=== PATIENT | male | born 1980 | race Caucasian/White ===

== ENCOUNTER 2020-03-16 12:54 | Emergency (ER) | payer SELFPAY ==
[2020-03-16] MEDS ORDERED: METOCLOPRAMIDE HCL INJ/PF 10 MG/2 ML SDV IV ONE (13:34)
[2020-03-16] MEDS ORDERED: NORMAL SALINE 1000 ML 1,000 ML IV ONE (13:34)
[2020-03-16] MEDS ORDERED: ACETAMINOPHEN 325 MG TABLET PO ONE (13:36)
--- NOTE | 2020-03-16 13:36 | ER Document Report ---
ED General - General Chief Complaint: Nausea/Vomiting/Diarrhea Stated Complaint: VOMITING/NAUSEA/SOB/MUSCLE PAIN Time Seen by Provider: 03/16/20 13:13 Notes: Patient is a 40-year-old male who presents to the emergency department with multiple complaints. Patient states that he has nausea, vomiting, diarrhea, generalized body aches, back pain, and generally not feeling well. Patient states that he has been taking "a dissolvable pill to help with nausea" from his mother. Patient states despite taking the nausea medication, he continues to vomit. States that he has a remote history of drug abuse. States that he does not know if he has had any contact with anybody with COVID-19. Patient states that he sometimes wears a mask out, and sometimes does not. TRAVEL OUTSIDE OF THE [place] IN LAST 30 DAYS: No - Related Data Allergies/Adverse Reactions: Bees Allergy (Uncoded 07/21/15 07:54) Past Medical History - General Information source: Patient - Social History Smoking Status: Current Every Day Smoker Family History: Reviewed & Not Pertinent - Past Medical History Cardiac Medical History: Reports: Hx Hypertension - pulmonary Renal/ Medical History: Reports: Hx Kidney Stones - right GI Medical History: Reports: Hx Ulcerative Colitis - Immunizations Hx Diphtheria, Pertussis, Tetanus Vaccination: Yes Review of Systems - Review of Systems Notes: REVIEW OF SYSTEMS: CONSTITUTIONAL : Denies recent illness. Denies recent unintentional weight loss. See HPI. EENT: Denies eye, ear, throat, or mouth pain, discharge, or symptoms. Denies nasal or sinus congestion. CARDIOVASCULAR: Denies chest pain. RESPIRATORY: Denies shortness of breath, cough, congestion, difficulty breathing, or wheezing. GASTROINTESTINAL: See HPI. GENITOURINARY: Denies difficulty urinating, burning, blood in urine, urgency or frequency. MUSCULOSKELETAL: Denies neck and back pain. Denies joint pain or swelling. SKIN: Denies rash, itchiness, or lesions HEMATOLOGIC : Denies easy bruising or bleeding. LYMPHATIC: Denies swollen, painful, enlarged glands. NEUROLOGICAL: Denies no numbness or tingling denies weakness. Denies headache. Denies altered mental status. Denies alteration in speech. PSYCHIATRIC: Denies stress, anxiety, alteration in sleep patterns, or depression. All other systems reviewed and negative. Physical Exam - Vital signs Vitals: Temp Pulse Resp BP Pulse Ox 97.8 F 106 H 20 141/102 H 100 03/16/20 13:20 03/16/20 13:20 03/16/20 13:20 03/16/20 13:20 03/16/20 13:20 - Notes Notes: PHYSICAL EXAMINATION: GENERAL: Appears well, healthy, well-nourished, no acute distress. HEAD: Normocephalic, atraumatic. EYES: PERRL, conjunctiva normal, all extraocular movements intact, sclera nonicteric ENT: Moist mucous membranes. NECK: Supple, no noticeable swelling, redness, rash. Normal range of motion. LUNGS: Equal breath sounds bilaterally and clear to auscultation. No wheezes rales or rhonchi. CARDIOVASCULAR: S1-S2, regular rate, regular rhythm. Radial pulses 2+, normal. ABDOMEN: Normoactive bowel sounds. Soft, nontender, no guarding, no rebound tenderness, and no masses palpated. EXTREMITIES: Normal strength and range of motion, no pitting or edema. No cyanosis. NEUROLOGICAL: Moves all extremities upon command. Strength 5/5 in all extremities. PSYCH: Normal mood, normal affect. SKIN: Warm, dry. No rash, lesions, ulcerations noted. Normal skin turgor. Course - Re-evaluation Re-evalutation: 03/16/20 15:21 Reevaluated patient. Patient has had about 500 and mils of his normal saline bolus. Patient states that he still feels significantly better after receiving Reglan and Tylenol. Will reevaluate the patient. His heart rate is still up in the low 100s. 03/16/20 17:39 Patient has been asked multiple times to provide a urine sample. He still has not.Hematology shows a hemoglobin of 17.7 and hematocrit of 52.6. This is consistent with dehydration. Chemistries are unremarkable, other than a calcium of 10.3, also consistent with dehydration. Troponin is unremarkable. Chest x-r ay is also unremarkable. Patient does not have any point tenderness noted to his spine. I have a low suspicion for an epidural abscess. 03/16/20 18:23 Urinalysis shows trace ketones and the patient's urine. The patient was evaluated during the global COVID-19 pandemic and that diagnosis was suspe cted/considered upon their initial presentation. Their evaluation, treatment and testing was consistent with current guidelines for patients who present with complaints or symptoms that may be related to COVID-19. Follow-up precautions were given. Verbal discharge instructions were given to the patient. They verbalized understanding. They are stable for discharge. - Vital Signs Vital signs: Temp Pulse Resp BP Pulse Ox 97.8 F 98 20 141/102 H 100 03/16/20 13:20 03/16/20 18:43 03/16/20 18:43 03/16/20 13:20 03/16/20 18:43 - Laboratory Result Diagrams: 03/16/20 14:30 03/16/20 14:30 Laboratory results interpreted by me: 03/16/20 03/16/20 03/16/20 14:30 14:30 17:14 RBC 5.93 H Hgb 17.7 H Hct 52.6 H RDW 14.3 H Lymph % (Auto) 10.2 L Calcium 10.3 H Urine Ketones TRACE H Discharge - Discharge Clinical Impression: Suspected COVID-19 virus infection Nausea & vomiting Qualifiers: Vomiting type: unspecified Vomiting Intractability: unspecified Qualified Code(s): R11.2 - Nausea with vomiting, unspecified Condition: Stable Disposition: HOME, SELF-CARE Instructions: COVID-19 Guidance for Persons Under Investigation, Intravenous (IV) Fluids ([facility]), Vomiting ([facility]) Additional Instructions: You were seen today in the emergency department for generalized body aches, nausea, and vomiting. You are being tested for COVID-19. Please make sure he stay well-hydrated. Your labs show that you are dehydrated. The health department will call you with your results for the COVID test. Stay in quarantine until they tell you what your results are. You can take 1000 mg of Tylenol every 6 hours as needed for pain. Take the nausea medication you have at home to help with her symptoms. If your COVID test is positive, please stay in quarantine for 2 weeks.
[2020-03-16 14:41] VITALS: BP 141/102
--- NOTE | 2020-03-16 14:56 | RADIOLOGY REPORT (SQ) ---
EXAM DESCRIPTION: CHEST SINGLE VIEW IMAGES COMPLETED DATE/TIME: 03/16/2020 2:45 pm REASON FOR STUDY: body aches COMPARISON: None. NUMBER OF VIEWS: One view. TECHNIQUE: Single frontal radiographic view of the chest acquired. LIMITATIONS: None. FINDINGS: LUNGS AND PLEURA: No opacities, masses or pneumothorax. No pleural effusion. MEDIASTINUM AND HILAR STRUCTURES: No masses. Contour normal. HEART AND VASCULAR STRUCTURES: Heart normal in size. Normal vasculature. BONES: No acute findings. HARDWARE: None in the chest. OTHER: No other significant finding. IMPRESSION: NO SIGNIFICANT RADIOGRAPHIC FINDING IN THE CHEST. TECHNICAL DOCUMENTATION: JOB ID: [id number] [employer]- All Rights Reserved Reading location - IP/workstation name: [email or web address]
[2020-03-16 14:59] LABS: ABSOLUTE EOSINOPHILS # (AUTO) 0.1 10^3/uL (0.0-0.6); ABSOLUTE LYMPHOCYTES (AUTO) 0.9 10^3/uL (0.5-4.7); ABSOLUTE NEUT (AUTO) 7.1 10^3/uL (1.7-8.2); BASOPHILS % (AUTO) 0.5 % (0-2); EOSINOPHILS % (AUTO) 1.5 % (0-6); HEMATOCRIT 52.6 % (37.9-51.0); HEMOGLOBIN 17.7 g/dL (13.5-17.0); LYMPHOCYTES % (AUTO) 10.2 % (13-45); MEAN CORPUSCULAR HEMOGLOBIN 29.9 pg (27.0-33.4); MEAN CORPUSCULAR HGB CONC 33.8 g/dL (32.0-36.0); MEAN CORPUSCULAR VOLUME 89 fl (80-97); MONOCYTES % (AUTO) 10.8 % (3-13); PLATELET COUNT 334 10^3/uL (150-450); RED BLOOD COUNT 5.93 10^6/uL (4.35-5.55); RED CELL DISTRIBUTION WIDTH 14.3 % (11.5-14.0); TOTAL CELLS COUNTED % (AUTO) 100 %; WHITE BLOOD COUNT 9.2 10^3/uL (4.0-10.5)
--- NOTE | 2020-03-16 15:13 | EKG REPORT ---
SEVERITY:- OTHERWISE NORMAL ECG - SINUS TACHYCARDIA BORDERLINE LEFT AXIS DEVIATION : Confirmed by: Blair Ramos MD 16-Mar-2020 15:12:14
[2020-03-16 15:25] LABS: ALBUMIN 4.9 g/dL (3.5-5.0); ALKALINE PHOSPHATASE 86 U/L (38-126); ANION GAP 10 (5-19); ASPARTATE AMINO TRANSFERASE 44 U/L (17-59); BILIRUBIN,DIRECT 0.4 mg/dL (0.0-0.4); BILIRUBIN,TOTAL 1.3 mg/dL (0.2-1.3); BLOOD UREA NITROGEN 16 mg/dL (7-20); CALCIUM 10.3 mg/dL (8.4-10.2); CARBON DIOXIDE 29 mmol/L (22-30); CHLORIDE 98 mmol/L (98-107); CREATINE KINASE 81 U/L (55-170); GLUCOSE 89 mg/dL (75-110); POTASSIUM 4.9 mmol/L (3.6-5.0); TOTAL PROTEIN 8.2 g/dL (6.3-8.2)
[2020-03-16] MEDS ORDERED: RINGERS SOLUTION,LACTATED 2,000 ML IV ONE (15:26)
[2020-03-16 18:01] LABS: APPEARANCE,URINE CLEAR; BILIRUBIN,URINE NEGATIVE (NEGATIVE); COLOR,URINE STRAW; GLUCOSE, URINE NEGATIVE (NEGATIVE); KETONES,URINE TRACE mg/dL (NEGATIVE); LEUKOCYTE ESTERASE,URINE NEGATIVE (NEGATIVE); NITRITE,URINE NEGATIVE (NEGATIVE); PROTEIN,URINE NEGATIVE (NEGATIVE); URINE SPECIFIC GRAVITY 1.008; UROBILINOGEN,URINE NEGATIVE mg/dL (<2.0)
[2020-03-16 18:17] LABS: URINE BARBITURATES SCREEN NEGATIVE; URINE BENZODIAZEPINES SCREEN NEGATIVE; URINE COCAINE SCREEN NEGATIVE; URINE METHADONE SCREEN NEGATIVE; URINE PHENCYCLIDINE SCREEN NEGATIVE
[2020-03-16 18:22] LABS: URINE MARIJUANA (THC) SCREEN UNCONFIRMED POSITIVE
== END 2020-03-16 18:43 | disposition home or self-care (01) ==
LOC: ER 12:54
DX: R11.2 Nausea with vomiting, unspecified (principal); R19.7 Diarrhea, unspecified; R06.02 Shortness of breath; M79.10 Myalgia, unspecified site; F17.200 Nicotine dependence, unspecified, uncomplicated; I10 Essential (primary) hypertension; Z20.828 Contact with and (suspected) exposure to other viral communicable diseases
CPT/HCPCS: 93005; 99285; 96361; 96374; 36415; 82550; 85025; 87635; 80053; 81001; 84484; 80307; 71045; 93010; J2765; J7030; J7120; C9803